=== PATIENT | male | born 1945 | race Caucasian/White ===

== ENCOUNTER → 2017-04-13 | Outpatient (CLI) | payer MEDICARE, OTHER ==
[~2017-04-13] MED LIST: ALBU90OI6 INH; ASCO500 PO; ASPI81CH PO; Biotin800 MCG PO; CALCA400CH; CRUTCH3 XX; CYAN500 PO; EZET10 PO; FISH OIL 1,0001 EAC1 PO; FOLI1 PO; GABA100 PO; GABA600 PO; GEMF600 PO; GLUC500; GLUCOSAMINE &1 EACH PO; HYDACE5325 PO; METF500C PO; Metformin HCl500 M1 PO; NAPR500 PO; NIAC250ER; OXYACE5T PO; Percocet 5-3251 EACH PO; RANI150 PO; RXOXYACE PO; SELENIUM200 MC1 PO; Simvastatin20 MG PO; TERC.4TC; TOCO400 PO
== END | disposition home or self-care (01) ==
LOC: PLD → LAB SHORT
DX: L82.0 Inflamed seborrheic keratosis (principal)
CPT/HCPCS: 88305

== ENCOUNTER 2020-08-21 12:15 | Emergency (ER) | payer MEDICARE, OTHER ==
[~2020-08-21] VITALS: Ht 182.9 cm; Wt 111.1 kg
[~2020-08-21 12:15] MED LIST changes: +AMLO5
[2020-08-21 13:18] LABS: BASOPHILS ABSOLUTE AUTO 0.04 K/mm3 (0.00-0.23); BASOPHILS PERCENT AUTO 1 % (0-2); EOSINOPHILS ABSOLUTE AUTO 0.16 K/mm3 (0.00-0.68); EOSINOPHILS PERCENT AUTO 2 % (0-6); Hematocrit 42.3 % (37.0-53.0); Hemoglobin 14.3 g/dL (13.5-17.5); IMMATURE GRAN ABSOLUTE AUTO 0.02 K/mm3 (0.00-0.10); IMMATURE GRAN PERCENT AUTO 0 % (0-1); LYMPHOCYTES ABSOLUTE AUTO 2.18 K/mm3 (0.84-5.20); LYMPHOCYTES PERCENT AUTO 28 % (21-46); MONOCYTES ABSOLUTE AUTO 0.54 K/mm3 (0.16-1.47); MONOCYTES PERCENT AUTO 7 % (4-13); Mean Corpuscular HGB 29.4 pg (26.0-34.0); Mean Corpuscular HGB Conc 33.8 g/dL (31.5-36.5); Mean Corpuscular Volume 87 fL (80-100); Mean Platelet Volume 9.5 fL (9.1-12.4); NEUTROPHILS ABSOLUTE AUTO 4.87 K/mm3 (1.96-9.15); NEUTROPHILS PERCENT AUTO 62 % (41-73); Platelet Count 209 K/mm3 (150-400); RDW Standard Deviation 41.1 fL (35.1-46.3); Red Blood Cell Count 4.86 M/mm3 (4.30-5.90); White Blood Cell Count 7.81 K/mm3 (4.00-11.30)
[2020-08-21 13:37] LABS: Alanine Aminotransfer (ALT/SGP 30 U/L (12-78); Albumin, Blood 3.9 g/dL (3.4-5.0); Albumin/Globulin Ratio 1.2 (0.8-1.8); Alk Phos 49 U/L (50-136); Anion Gap 3 mmol/L (6-16); Aspartate Aminotrans (AST/SGOT 13 U/L (12-37); Bilirubin, Total 0.4 mg/dL (0.1-1.0); Blood Urea Nitrogen 13 mg/dL (8-24); Bun/Creatinine Ratio 11.1 (12.0-20.0); CO2, Blood 27 mmol/L (21-32); Calcium, Blood 8.9 mg/dL (8.5-10.1); Chloride, Blood 110 mmol/L (98-108); Creatinine, Blood 1.17 mg/dL (0.60-1.20); Globulin, Blood 3.2 g/dL (2.2-4.0); Glomerular Filtration Rate >60 (60-); Glucose, Blood 120 mg/dL (70-99); Potassium, Blood 4.2 mmol/L (3.5-5.5); Sodium, Blood 140 mmol/L (136-145); Total Protein, Blood 7.1 g/dL (6.4-8.2)
[2020-08-21] MEDS ORDERED: NAPR500 PO (14:26)
[2020-08-21] MEDS ORDERED: Norco 5-325 Ta1 EACH PO (14:26)
== END 2020-08-21 14:15 | disposition home or self-care (01) ==
LOC: ER 12:15
PROVIDERS: Physician Assistant
DX: M25.512 Pain in left shoulder (principal); Z79.4 Long term (current) use of insulin; Z79.899 Other long term (current) drug therapy
CPT/HCPCS: 36415; 73030; 80053; 85025; 99283-25; A9270

== ENCOUNTER 2023-03-10 05:46 | Day surgery (SDC) | payer MEDICARE, OTHER ==
[2023-03-10] VITALS (19 sets, daily range): BP systolic 132–170; BP diastolic 60–105
[~2023-03-10] VITALS: Ht 177.8 cm; Wt 115.3 kg
[~2023-03-10 05:46] MED LIST changes: -AMLO5; +AMLO5 PO; +FENO160 PO; +GLUCHON PO; +Norco 5-325 Ta1 EACH PO
--- NOTE | 2023-03-10 07:49 | NUR ---
History, Chart, Medications and Allergies reviewed before start of procedure. Ambulatory in Day Surgery. Pre-Op teaching done. Pt verbalizes understanding. Patient confirms NPO status and agrees with scheduled surgery. Patient reports completing Chlorhexadine shower X2 prior to admission to hospital. Surgical site prepped with 2% Chlorhexidine cloth wipe. Lungs clear T/O to Auscultation. Patient States Post-Procedure ride home has been arranged.
--- NOTE | 2023-03-10 08:19 | NUR ---
03/10/23 0819 Jayne Nguyen PATIENT RECEIVED VANCO 1GM IV IN THE PREOP SETTING PRIOR TO ARRIVING IN THE OR.
--- NOTE | 2023-03-10 14:13 | NUR ---
[facility] IS EVALUATING PATIENT
[2023-03-10] MEDS ORDERED: SULTRIDS PO (15:13)
[2023-03-10] MEDS ORDERED: Aspir 8181 MG PO (15:14)
[2023-03-10] MEDS ORDERED: Percocet 5-3251 EACH PO (15:14)
--- NOTE | 2023-03-10 19:37 | NUR ---
SHIFT SUMMARY PT A&OX4, VSS/RA/CPAP-BIOX, CEDRIC PO, VOIDING, AMB FWW/GB, UP TO CHAIR, PT EVAL'D TODAY, PAIN MANAGED. S/P R TKA, SURG DRESSING APPEARS CDI, POLAR VISHAL, TEDS/SCDS ON. REPORT TO MARY KATE HDEZ.
[2023-03-11 00:17] VITALS: BP 147/61
--- NOTE | 2023-03-11 04:31 | NUR ---
SHIFT SUMMARY POD 1 R TKA PT RESTED T/O NIGHT. PAIN MANAGED PER EMAR. TOLERATING PO INTAKE. UP TO THE BATHROOM, VOIDING. DRESSING TO R KNEE C/D/I. PT WORE CPAP ALL NIGHT. VSS. NO OTHER CONCERNS AT THIS TIME. CALL LIGHT WITHIN REACH
[2023-03-11 05:23] VITALS: BP 148/70
[2023-03-11 06:13] LABS: Calcium, Blood 8.6 mg/dL (8.5-10.1); Creatinine, Blood 1.22 mg/dL (0.60-1.20); Magnesium, Blood 2.4 mg/dL (1.6-2.4); Potassium, Blood 3.8 mmol/L (3.5-5.5)
[2023-03-11 06:31] LABS: BASOPHILS ABSOLUTE AUTO 0.02 K/mm3 (0.00-0.23); BASOPHILS PERCENT AUTO 0 % (0-2); EOSINOPHILS PERCENT AUTO 0 % (0-6); Hematocrit 37.9 % (37.0-53.0); IMMATURE GRAN ABSOLUTE AUTO 0.08 K/mm3 (0.00-0.10); IMMATURE GRAN PERCENT AUTO 1 % (0-1); LYMPHOCYTES PERCENT AUTO 12 % (21-46); MONOCYTES PERCENT AUTO 10 % (4-13); Mean Corpuscular HGB 30.4 pg (26.0-34.0); Mean Corpuscular HGB Conc 34.3 g/dL (31.5-36.5); Mean Corpuscular Volume 89 fL (80-100); Mean Platelet Volume 9.9 fL (9.1-12.4); NEUTROPHILS ABSOLUTE AUTO 11.14 K/mm3 (1.96-9.15); NEUTROPHILS PERCENT AUTO 77 % (41-73); Platelet Count 213 K/mm3 (150-400); RDW Coefficient Variation 12.7 % (11.7-14.2); RDW Standard Deviation 41.5 fL (35.1-46.3); Red Blood Cell Count 4.27 M/mm3 (4.30-5.90); White Blood Cell Count 14.54 K/mm3 (4.00-11.30)
[2023-03-11 07:08] VITALS: BP 144/66
--- NOTE | 2023-03-11 11:58 | NUR ---
DISCHARGE PT A&OX4, VSS/RA/CPAP-BIOX NOC, CEDRIC PO, VOIDING, AMB SBA FWW/GB, UP TO CHAIR, DRESSED, PAIN MANAGED, IV DC'D. DC INS PROVIDED. PT REP UNDERSTANDING THOSE INSTRUCTIONS INCLUDING ASA/BACTRIM/PAIN MED, DRESSING CHANGES, FU WITH SURGEON AND PHYSICAL THERAPY. LEFT FLOOR VIA WC WITH PREMISES TECHNICIAN TO GO HOME WITH , WITH ALL PERSONAL POSSESSIONS INCLUDING AQUACEL DRESSINGS AND DC INS.
== END 2023-03-11 11:20 | disposition home or self-care (01) ==
LOC: ORSCMMR 05:46 → ORD 07:30 → ORSCMMR 07:30 → SURS 10:42 → ORSCMMR 03-11 11:20
PROVIDERS: Orthopaedic Surgery
PROC: 0SRC0JA Replacement of Right Knee Joint with Synthetic Substitute, Uncemented, Open Approach (ICD-10-PCS; principal; 2023-03-10 07:30)
DX: M17.11 Unilateral primary osteoarthritis, right knee (principal); I10 Essential (primary) hypertension; Z96.619 Presence of unspecified artificial shoulder joint; E11.9 Type 2 diabetes mellitus without complications; E66.9 Obesity, unspecified; Z68.36 Body mass index [BMI] 36.0-36.9, adult; Z79.84 Long term (current) use of oral hypoglycemic drugs; Z79.899 Other long term (current) drug therapy; G47.33 Obstructive sleep apnea (adult) (pediatric)
CPT/HCPCS: 36415; 73560-RT; 80048; 82947; 83735; 85025; 97110; 97116; 97162; A9270; C1713; C1776; J0171; J0690; J0735; J1100; J1170; J1815; J1885; J2250; J2405; J2704; J2795; J3010; J3370; J7120